=== PATIENT | female | born 1950 | race Caucasian/White ===

== ENCOUNTER 2023-10-09 18:23 | Emergency (ER) | payer MEDICARE, SELFPAY ==
[2023-10-09 18:24] VITALS: BP 153/81; PULSE 104; RESP 18; TEMP 37.2; O2SAT 100; BMI 29.9
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
[2023-10-09 18:45] VITALS: BP 150/80; PULSE 76; RESP 18; TEMP 37.2; O2SAT 99
== END 2023-10-09 18:47 ==
PROVIDERS: Emergency Provider Student in an Organized Health Care Education/Training Program
DX: Z00.8 Encounter for other general examination (principal); S50.812A Abrasion of left forearm, initial encounter; Y09 Assault by unspecified means
CPT/HCPCS: 99282